=== PATIENT | female | born 1995 | race African-American/Black ===

== ENCOUNTER 2020-12-13 10:21 | Emergency (ER) | payer SELFPAY ==
[~2020-12-13] VITALS: Ht 165.1 cm; Wt 54.5 kg
[2020-12-13] MEDS ORDERED: IV NORMAL SALINE 1000ML BAG 1,000 ML IV SCH (11:00)
--- NOTE | 2020-12-13 11:00 | PHYS DOC ---
General Adult EDM: Chief Complaint: VAGINAL BLEEDING HPI: HPI: Patient is a 25 year old female who presents with 3 months of intermittent vaginal bleeding, pain with urination, painful sex. Patient does not have a OB licensed psychologist director. She states sometimes she takes Plan B. She denies any unusual vaginal smell or discharge. Her is present. Patient speaks only Swahili but notes some Kosovan. Denies any other history or concerns for STDs. Patient denies any surgeries. She has no children. Patient has no pain at this time. Patient denies nausea, vomiting, abdominal pain, back pain, chest pain, fever, shortness of breath. (FALLON LEDBETTER APRN) Review of Systems: Review of Systems: Constitutional: Denies fever or chills. [] Eyes: Denies change in visual acuity. [] HENT: Denies nasal congestion or sore throat. [] Respiratory: Denies cough or shortness of breath. [] Cardiovascular: Denies chest pain or edema. [] GI: Denies abdominal pain, nausea, vomiting, bloody stools or diarrhea. [] : + dysuria. +Painful sex. +Intermittent caginal bleeding.[] Musculoskeletal: Denies back pain or joint pain. [] Integument: Denies rash. [] Neurologic: Denies headache, focal weakness or sensory changes. [] Endocrine: Denies polyuria or polydipsia. [] Lymphatic: Denies swollen glands. [] Psychiatric: Denies depression or anxiety. [] (FALLON LEDBETTER SUPERVISOR TREE TRIMMING) Heart Score: C/O Chest Pain: No Risk Factors: Risk Factors: DM, Current or recent (<one month) smoker, HTN, HLP, family history of CAD, obesity. Risk Scores: Score 0 - 3: 2.5% MACE over next 6 weeks - Discharge Home Score 4 - 6: 20.3% MACE over next 6 weeks - Admit for Clinical Observation Score 7 - 10: 72.7% MACE over next 6 weeks - Early Invasive Strategies (FALLON LEDBETTER APRN) Allergies: Allergies: Allergies Coded Allergies Type Severity Reaction Last Updated Verified No Known Drug Allergies 12/13/20 No (FALLON LEDBETTER APRN) Physical Exam: PE: Constitutional: Well developed, well nourished, no acute distress, non-toxic appearance. [] HENT: Normocephalic, atraumatic, bilateral external ears normal, oropharynx moist, no oral exudates, nose normal. [] Eyes: PERRLA, EOMI, conjunctiva normal, no discharge. [] Neck: Normal range of motion, no tenderness, supple, no stridor. [] Cardiovascular:Heart rate regular rhythm, no murmur [] Lungs & Thorax: Bilateral breath sounds clear to auscultation [] Abdomen: Bowel sounds normal, soft, no tenderness, no masses, no pulsatile masses. See pelvic exam. [] Skin: Warm, dry, no erythema, no rash. [] Back: No tenderness, no CVA tenderness. [] Extremities: No tenderness, no cyanosis, no clubbing, ROM intact, no edema. [] Neurologic: Alert and oriented X 3, normal motor function, normal sensory function, no focal deficits noted. [] Psychologic: Affect normal, judgement normal, mood normal. [] (FALLON LEDBETTER APRN) Current Patient Data: Labs: Laboratory Tests Test 12/13/20 10:42 POC Urine HCG, Qualitative Hcg negative (Negative) (FALLON LEDBETTER APRN) EKG: EKG: [] (FALLON LEDBETTER APRN) Radiology/Procedures: Radiology/Procedures: [] Impression: [facility] [address] [place], [place] [id number] IMAGING REPORT Signed PATIENT: MALIK PORTILLOACCOUNT: [id number] : 1995 LOCATION: ER AGE: 25 SEX: F EXAM STATUS: REG ER ORD. PHYSICIAN: FALLON LEDBETTER APRN REASON: PAINFUL SEX, VAGINAL BLEEDING, CERVICAL IRRITATION PROCEDURE: PELVIS COMPLETE Pelvic ultrasound dated 12/13/2020. No comparison available. Clinical data indication: Vaginal bleeding. FINDINGS: Transabdominal pelvic ultrasound was performed. Uterus measures 8.6 x 5.3 x 3.7 cm. No focal mass. Endometrium is within normal limits in thickness for age measuring 7 mm. Right ovary measures 2.8 x 2.6 x 1.9 cm. Left ovary measures 3.4 x 2.3 x 1.9 cm. No adnexal mass or free fluid. Small simple cyst or dominant follicle at the right ovary measuring 1.8 cm. Normal color flow. IMPRESSION: No acute sonographic abnormality. Electronically signed by: Stone Sainz MD (12/13/2020 11:47 AM) [facility] [place] DICTATED and SIGNED BY: STONE SAINZ MD DATE: 12/13/20 [id number] 0 (FALLON LEDBETTER APRN) Course & Med Decision Making: Course & Med Decision Making Pertinent Labs and Imaging studies reviewed. (See chart for details) See HPI. Alert and oriented x4. Ambulatory with a steady gait. Speaks in full clear sentences. Abdomen is soft and nontender. Vital signs within normal limits. Skin pink warm and dry. Pelvic Exam: Credit Intern present Abdomen: Nontender External Genitalia: Normal Skin Speculum: Normal vaginal mucosa, clear, gel like cervical discharge. Cervical os is reddened but not friable. Bimanual: No adnexal masses or tenderness, No CMT Pelvic Ultrasound shows no acute findings. Urinalysis does not appear to be infected but contaminated. I will give her 1g Rocephin because she has UTI symptoms and to cover for possible cervicitis. I am also sending her with a z pack. Patient is to follow up with gynecology. [] (FALLON LEDBETTER APRN) Dragon Disclaimer: Adan Disclaimer: This electronic medical record was generated, in whole or in part, using a voice recognition dictation system. (FALLON LEDBETTER APRN) Departure Departure Impression: Primary Impression: Painful sexual intercourse Additional Impression: Urinary symptom or sign Disposition: 01 HOME / SELF CARE / HOMELESS Condition: STABLE Referrals: NO PCP (PCP) STONE BHANDARI MD Patient Instructions: Dyspareunia, Urinary Tract Infection Additional Instructions: Follow up with a licensed psychologist director by calling the number given on your instruction paper work. Drink plenty of fluids and take medication as prescribed with food. Scripts Azithromycin (AZITHROMYCIN TABLET) 250 Mg Tablet 1 PKG PO UD for 5 Days, #6 TAB 0 Refills 2 the first day followed by 1 for days 2-5 Prov: FALLON LEDBETTER APRN 12/13/20 Attending Signature I have participated in the care of this patient and I have reviewed and agree with all pertinent clinical information above including history, exam, and recommendations. (CATHERINE AMADO DO) FALLON LEDBETTER APRN Dec 13, 2020 11:00 CATHERINE AMADO DO Dec 13, 2020 12:16
[2020-12-13 11:14] LABS: BILIRUBIN,URINE NEGATIVE (NEG); CLARITY,URINE CLEAR; COLOR,URINE YELLOW; NITRITE,URINE NEGATIVE (NEG); PH,URINE 7.5 (<5.0-8.0); PROTEIN,URINE NEGATIVE (NEG-TRACE); UROBILINOGEN,URINE 0.2 mg/dL (0.2 mg/dL)
[2020-12-13 11:23] LABS: BACTERIA,URINE FEW /HPF (0-FEW)
[2020-12-13 11:24] LABS: BASO % 1 % (0-3); EOS # 0.1 x10^3/uL (0.0-0.7); EOS % 2 % (0-3); HEMATOCRIT 34.5 % (36.0-47.0); HEMOGLOBIN 11.6 g/dL (12.0-15.5); LYMPH # 1.7 x10^3/uL (1.0-4.8); LYMPH % 34 % (24-48); MEAN CORPUSCULAR HEMOGLOBIN 31 pg (25-35); MEAN CORPUSCULAR HGB CONC 34 g/dL (31-37); MEAN CORPUSCULAR VOLUME 93 fL (79-100); MONO # 0.4 x10^3/uL (0.0-1.1); MONO % 8 % (0-9); NEUT # 2.6 x10^3/uL (1.8-7.7); NEUT % 54 % (31-73); PLATELET COUNT 230 x10^3/uL (140-400); RED CELL DISTRIBUTION WIDTH 14.1 % (11.5-14.5); WHITE BLOOD COUNT 4.9 x10^3/uL (4.0-11.0)
[2020-12-13 11:28] LABS: CALCIUM 8.6 mg/dL (8.5-10.1); CREATININE 0.6 mg/dL (0.6-1.0); GFR 147.4; POTASSIUM 3.7 mmol/L (3.5-5.1)
[2020-12-13 11:33] LABS: ALBUMIN 3.4 g/dL (3.4-5.0); ALBUMIN/GLOBULIN RATIO 0.9 (1.0-1.7); TOTAL BILIRUBIN 0.7 mg/dL (0.2-1.0); TOTAL PROTEIN 7.1 g/dL (6.4-8.2)
--- NOTE | 2020-12-13 11:49 | RAD ---
Pelvic ultrasound dated 12/13/2020. No comparison available. Clinical data indication: Vaginal bleeding. FINDINGS: Transabdominal pelvic ultrasound was performed. Uterus measures 8.6 x 5.3 x 3.7 cm. No focal mass. En dometrium is within normal limits in thickness for age measuring 7 mm. Right ovary measures 2.8 x 2.6 x 1.9 cm. Left ovary measures 3.4 x 2.3 x 1.9 cm. No adnexal mass or f ree fluid. Small simple cyst or dominant follicle at the right ovary measuring 1.8 cm. Normal color f low. IMPRESSION: No acute sonographic abnormality. Electronically signed by: Stone Sainz MD (12/13/2020 11:47 AM) [facility]
[2020-12-13] MEDS ORDERED: cefTRIAXone IV Push 1 GM VIAL. IVP ONE (12:00)
[2020-12-13] MEDS ORDERED: AZIT250T6 PO (12:01)
[2020-12-13 12:51] VITALS: BP 125/91
[2020-12-14 13:39] LABS: GC PROBE Negative (Negative)
== END 2020-12-13 13:02 | disposition home or self-care (01) ==
LOC: ER 10:21
DX: N93.9 Abnormal uterine and vaginal bleeding, unspecified (principal); R30.0 Dysuria
CPT/HCPCS: 76856; 80053; 81001; 81025; 83690; 85025; 87086; 87491; 87591; 96361; 96374; 99285; J0696; J7030; Q0111

== ENCOUNTER 2021-05-18 13:13 | Emergency (ER) | payer SELFPAY ==
[~2021-05-18] VITALS: Ht 167.6 cm; Wt 48.9 kg
[~2021-05-18 13:13] MED LIST: AZIT250T6 PO
[2021-05-18 15:08] VITALS: BP 129/69
--- NOTE | 2021-05-18 15:51 | PHYS DOC ---
Past Medical History Past Medical History: No Pertinent History (GAGANDEEP ABRAHAM APRN) Past Surgical History: No Surgical History (GAGANDEEP ABRAHAM APRN) Smoking Status: Never Smoker Alcohol Use: None (GAGANDEEP ABRAHAM APRN) General Adult EDM: Chief Complaint: COUGH HPI: HPI: Patient is a 25-year-old female that presents today for cough. Patient states she has had a cough since 2016, she is from [place] dates that when she came to this country 2[place]2 years ago she was tested for tuberculosis given prophylactic treatment but continues to have a cough. She has not followed up with her primary care over the clinic for this cough since her treatment 2-1/2 years ago. She denies fever and chills, denies hemoptysis, does state that she has nasal congestion. Patient is Yemeni speaking only the asl interpreter line was used for all communication with this patient (GAGANDEEP ABRAHAM APRN) Review of Systems: Review of Systems: Constitutional: Denies fever or chills. [] Eyes: Denies change in visual acuity. [] HENT: nasal congestion or denies sore throat. [] Respiratory: Cough [] Cardiovascular: Denies chest pain or edema. [] GI: Denies abdominal pain, nausea, vomiting, bloody stools or diarrhea. [] : Denies dysuria. [] Musculoskeletal: Denies back pain or joint pain. [] Integument: Denies rash. [] Neurologic: Denies headache, focal weakness or sensory changes. [] Endocrine: Denies polyuria or polydipsia. [] Lymphatic: Denies swollen glands. [] Psychiatric: Denies depression or anxiety. [] (GAGANDEEP ABRAHAM APRN) Heart Score: C/O Chest Pain: N/A Risk Factors: Risk Factors: DM, Current or recent (<one month) smoker, HTN, HLP, family history of CAD, obesity. Risk Scores: Score 0 - 3: 2.5% MACE over next 6 weeks - Discharge Home Score 4 - 6: 20.3% MACE over next 6 weeks - Admit for Clinical Observation Score 7 - 10: 72.7% MACE over next 6 weeks - Early Invasive Strategies (GAGANDEEP ABRAHAM APRN) Allergies: Allergies: Allergies Coded Allergies Type Severity Reaction Last Updated Verified No Known Drug Allergies 12/13/20 No (GAGANDEEP ABRAHAM APRN) Physical Exam: PE: Constitutional: Well developed, well nourished, no acute distress, non-toxic appearance. [] HENT: Normocephalic, atraumatic, bilateral external ears normal, oropharynx moist, no oral exudates, nose normal. TMs are normal bilaterally [] Eyes: PERRLA, EOMI, conjunctiva normal, no discharge. [] Neck: Normal range of motion, no tenderness, supple, no stridor. [] Cardiovascular:Heart rate regular rhythm, no murmur [] Lungs & Thorax: Bilateral breath sounds clear to auscultation , cough Abdomen: Bowel sounds normal, soft, no tenderness, no masses, no pulsatile masses. [] Skin: Warm, dry, no erythema, no rash. [] Back: No tenderness, no CVA tenderness. [] Extremities: No tenderness, no cyanosis, no clubbing, ROM intact, no edema. [] Neurologic: Alert and oriented X 3, normal motor function, normal sensory function, no focal deficits noted. [] Psychologic: Affect normal, judgement normal, mood normal. [] (GAGANDEEP ABRAHAM APRN) Current Patient Data: Vital Signs: Vital Signs Date Time Temp Pulse Resp B/P (MAP) Pulse Ox O2 Delivery O2 Flow Rate FiO2 05/18/21 15:08 98.1 96 16 129/69 (89) 99 Room Air 98.1 (GAGANDEEP ABRAHAM APRN) EKG: EKG: [] (GAGANDEEP ABRAHAM APRN) Radiology/Procedures: Radiology/Procedures: PROCEDURE: CHEST PA & LATERAL PA and lateral views of the chest. Comparison: None. Indication: Cough Findings: The heart size is normal. No pneumothorax or effusion. Surgical consolidation is seen in the perihilar right upper lung zone. The bony structures are intact. Impression: 1. Focal right superior lung zone consolidation. Findings may be infectious given stated history. Recommend follow-up to resolution.[] (GAGANDEEP ABRAHAM APRN) Course & Med Decision Making: Course & Med Decision Making Pertinent Labs and Imaging studies reviewed. (See chart for details) Reviewed x-ray with Dr. Juares we will treat patient for upper respiratory infection will also have patient take [id number]-fxy-yzvcrbs Zyrtec once daily and use Flonase 2 sprays both nares once daily. We will also give patient a list of clinics to follow-up with that she may establish a primary care physician [] (GAGANDEEP ABRAHAM APRN) Course & Med Decision Making I have participated in the care of this patient and I have reviewed and agree with all pertinent clinical information above including history, exam, and recommendations. Patient's objective findings are likely suggestive of a URI with her nasal congestion. She is not having any typical TB symptoms including night sweats, bloody sputum or other findings. Her x-ray was reviewed by me, does not show a typical TB or overt pneumonia type pattern. In addition to what was provided to the patient for primary care follow-up, the patient was strongly suggested to call the Replaced by [facility] office for further instructions regarding her latent TB. Yemeni asl interpreter via [place] Phone Was used for all interactions including exam and history taking Colton Juares DO (COLTON JUARES DO) Adan Disclaimer: Adan Disclaimer: This electronic medical record was generated, in whole or in part, using a voice recognition dictation system. (GAGANDEEP ABRAHAM APRN) Departure Departure Impression: Primary Impression: Upper respiratory infection, acute Additional Impression: Seasonal allergic rhinitis Qualified Codes: J30.2 - Other seasonal allergic rhinitis Disposition: 01 HOME / SELF CARE / HOMELESS Condition: STABLE Referrals: NO PCP (PCP) Patient Instructions: Allergic Rhinitis, Upper Respiratory Infection, Adult Additional Instructions: Call the [facility] Department on the list provided to ask them for further testing for your cough as well Lyaq-doy-kismura Zyrtec or Claritin once daily Lpds-vxc-kcujioh nasal spray Flonase 2 sprays in each nare once daily Zithromax take as directed Follow-up with one of the clinics provided for further management of your cough if not better with the above treatments Return to the emergency department for increased shortness of breath, inability to catch her breath or or having troubles with the airway Scripts Azithromycin (AZITHROMYCIN TABLET) 500 Mg Tablet 1 TAB PO DAILY for upper respiratory infection for 5 Days, #5 TAB 0 Refills Prov: GAGANDEEP ABRAHAM APRN 05/18/21 GAGANDEEP ABRAHAM APRN May 18, 2021 15:51 COLTON JUARES DO May 19, 2021 06:20
--- NOTE | 2021-05-18 15:56 | RAD ---
PA and lateral views of the chest. Comparison: None. Indication: Cough Findings: The heart size is normal. No pneumothorax or effusion. Surgical consolidation is seen in the perihila r right upper lung zone. The bony structures are intact. Impression: 1. Focal right superior lung zone consolidation. Findings may be infectious given stated history. Rec ommend follow-up to resolution. Electronically signed by: William Lee MD (05/18/2021 3:54 PM) [facility]
[2021-05-18] MEDS ORDERED: AZIT500T4 PO ×2 (16:13→16:22)
== END 2021-05-18 16:49 | disposition home or self-care (01) ==
LOC: ER 13:13
DX: J30.2 Other seasonal allergic rhinitis (principal); J06.9 Acute upper respiratory infection, unspecified
CPT/HCPCS: 71046; 99283